=== PATIENT | male | born 1975 | race Caucasian/White ===

== ENCOUNTER 2021-04-03 06:48 | Emergency (ER) | payer SELFPAY ==
[2021-04-03] MEDS ORDERED: Ketorolac Tromethamine 30 MG/ML VIAL ONE (07:12)
== END 2021-04-03 07:37 | disposition home or self-care (01) ==
LOC: ERS 06:48
DX: L03.317 Cellulitis of buttock (principal); N49.2 Inflammatory disorders of scrotum; Z89.432 Acquired absence of left foot; F17.210 Nicotine dependence, cigarettes, uncomplicated
CPT/HCPCS: 96372; 99283; J1885